=== PATIENT | male | born 1980 | race Two or more races ===

== ENCOUNTER 2018-11-14 01:58 | Emergency (ER) | payer SELFPAY ==
[2018-11-14 02:03] VITALS: BP 144/94
--- NOTE | 2018-11-14 02:07 | ER Report ---
History and Physical Time Seen By MD: 02:05 HPI/ROS CHIEF COMPLAINT: Eyes burning HISTORY OF PRESENT ILLNESS: 38-year-old male presents ambulatory to the ER complaining of eye burning this evening with mattering and discharge. Patient states he's had cold symptoms for a couple of days. He's been taking [id number] medications denies. His eyes became very burning. He tried zlzm-tda-vdwoirh drops to soothe them without improvement. He irrigated his eyes once he started to accumulate some mattering. Patient does not wear contacts REVIEW OF SYSTEMS: Respiratory: No cough, no dyspnea. Cardiovascular: No chest pain, no palpitations. Gastrointestinal: No vomiting, no abdominal pain. Musculoskeletal: No back pain. Allergies: Coded Allergies: Cephalosporins (Verified Allergy, Mild, 11/14/18) Sulfa (Sulfonamide Antibiotics) (Verified Allergy, Mild, 11/14/18) Home Meds No Active Prescriptions or Reported Meds Reviewed Nurses Notes: Yes Old Medical Records Reviewed: Yes Constitutional Vital Sign - Last 24 Hours 11/14/18 11/14/18 11/14/18 11/14/18 02:02 02:03 02:13 02:28 Temp 98.8 Pulse 82 83 79 Resp 16 B/P (MAP) 144/94 (111) 144/94 Pulse Ox 94 92 92 O2 Delivery Room Air Physical Exam Vital signs stable, afebrile, pulse ox normal, visual acuity noted. General Appearance: The patient is alert, has no immediate need for airway protection and no current signs of toxicity. Moderate distress Eyes: Pupils equal and round no injection. Bilateral injection., Mattering, foreseen instilled. No uptake on the corneas bilaterally. There is subtle haziness Respiratory: Chest is non tender, lungs are clear to auscultation. Cardiac: regular rate and rhythm Gastrointestinal: Abdomen is soft and non tender, no masses, bowel sounds normal. Musculoskeletal: Neck: Neck is supple and non tender. Extremities have full range of motion and are non tender. Skin: No rashes or lesions. DIFFERENTIAL DIAGNOSIS: After history and physical exam differential diagnosis was considered for conjunctivitis, ultraviolet strickland, allergic reaction, aller gic conjunctivitis, Medical Decision Making ED Course/Re-evaluation ED Course Patient was admitted to an examination room. H&P was done. The differential diagnoses was considered. Patient with bilateral eye burning. He's had viral symptoms for several days. He appears to have viral conjunctivitis. Patient will be placed on Tobrex drops. His visual acuity was noted and unremarkable. Patient's advised to follow-up with ophthalmology if unimproved in 3 days. Decision to Disposition Date: Nov 14, 2018 Decision to Disposition Time: 02:21 Depart Departure Latest Vital Signs Vital Signs Date Time Temp Pulse Resp B/P (MAP) Pulse Ox O2 Delivery O2 Flow Rate FiO2 11/14/18 02:28 79 92 11/14/18 02:03 98.8 16 144/94 Room Air Impression: Primary Impression: Conjunctivitis Additional Impression: Viral upper respiratory infection Condition: Improved Disposition: HOME OR SELF-CARE Referrals: ONEAL LAM MD New Scripts No Active Prescriptions or Reported Meds Patient Instructions: Conjunctivitis (ED) Additional Instructions: Use Tobrex drops 1 drop 3 times daily for 2-3 days Follow-up with eye doctor if unimproved in 3-[address] Oneal Lam Problem Qualifiers Primary Impression: Conjunctivitis Conjunctivitis type: acute Acute conjunctivitis type: unspecified Laterality: bilateral Qualified Codes: H10.33 - Unspecified acute conjunctivitis, bilateral HEATHLISA Nov 14, 2018 02:07
[2018-11-14] MEDS ORDERED: FLUORESCEIN SOD 1 MG 1 EA STRP OU ONE (02:15)
[2018-11-14] MEDS ORDERED: PROPARACAINE 0.5% OP 15ML BTL OU ONE (02:15)
[2018-11-14] MEDS ORDERED: TOBRAMYCIN/DEX OP SUSP 2.5 ML OU ONE (02:30)
== END 2018-11-14 02:38 | disposition home or self-care (01) ==
LOC: ER 02:11
DX: H10.33 Unspecified acute conjunctivitis, bilateral (principal); J06.9 Acute upper respiratory infection, unspecified
CPT/HCPCS: 99282